=== PATIENT | female | born 1965 | race Caucasian/White ===

== ENCOUNTER → 2017-06-03 | Outpatient (CLI) | payer BC ==
[~2017-06-03] MED LIST: REGADENOSON 0.4 MG/5 ML SYR IV ONE
--- NOTE | 2017-06-04 14:58 | Consultation ---
DATE OF CONSULTATION: June 04, 2017 CARDIOLOGY CONSULTATION REQUESTING PHYSICIAN: Dr. Anand Carter. REASON FOR CONSULTATION: Chest pain. HISTORY OF PRESENT ILLNESS: This is a 52-year-old woman with a history of ADD, who presents with complaints of chest pain. She reports she has been having chest tightness associated with shortness of breath for the last couple of weeks. This pain is described as 4 out of 10 in severity, which usually occurs at the end of a long day while she is sitting down. The pain lasts minutes at a time and is not associated with nausea, diaphoresis or radiation. She has not noticed any change in the severity of the chest pain with activity. REVIEW OF SYSTEMS: Negative except as per HPI. PAST MEDICAL HISTORY: ADD. PAST SURGICAL HISTORY 1. section x2. 2. Tonsillectomy. 3. Breast augmentation. 4. Cholecystectomy with gastric stapling. ALLERGIES: PLEASE SEE EMR. MEDICATIONS: Please see medication list. SOCIAL HISTORY: Denies tobacco, alcohol or illicit drugs. FAMILY HISTORY: Noncontributory. PHYSICAL EXAMINATION VITAL SIGNS: Reviewed. GENERAL: Morbidly obese woman in no acute distress. Well developed, well nourished. HEENT: Normocephalic, atraumatic. Pupils equal, no scleral icterus. NECK: Supple. No thyromegaly or cervical lymphadenopathy, no carotid bruits. LUNGS: Clear to auscultation bilaterally. No wheezes or crackles. CARDIOVASCULAR: Normal rate, regular rhythm. No murmur. Normal S1 and S2. ABDOMEN: Soft, nontender. EXTREMITIES: No edema. NEURO: Nonfocal exam. IMPRESSION: Chest pain. RECOMMENDATIONS: We will proceed with pharmacologic nuclear stress test for further evaluation of the patient's chest pain. Job#: [id number] EV
--- NOTE | 2017-06-04 20:19 | Cardiology Report ---
DATE OF STUDY: June 04, 2017 PROCEDURE TITLE Rest stress single isotope SPECT imaging with pharmacologic stress and gated SPECT imaging. INDICATION: Chest pain. PROCEDURE: Pharmacologic stress testing was performed with regadenoson per protocol. Heart rate was 69 beats per minute at baseline and bambi to 98 beats per minute during the regadenoson infusion. The rest blood pressure was 132/74 and increased to 135/67 mmHg, which is a normal response. The patient did not develop any significant symptoms. The resting electrocardiogram demonstrated normal sinus rhythm. There were no ST segment changes consistent with myocardial ischemia. Myocardial perfusion imaging was performed at rest following the injection of 32 millicuries of tetrofosmin the previous day. At peak pharmacologic effect, the patient was injected with 31.2 mCi of tetrofosmin. Gated post stress tomographic imaging was performed. FINDINGS: Overall quality of the study is fair. Attenuation artifact is present. Left ventricular cavity is noted to be normal size on the rest and stress studies. The rest images reveal a medium-sized mild anterior perfusion defect that improves with stress. Gated SPECT imaging reveals normal myocardial thickening and wall motion. The left ventricular ejection fraction was calculated to be greater than 70%. IMPRESSION: Myocardial perfusion imaging is normal. There is a medium-sized mild anterior attenuation artifact. Overall left ventricular systolic function was normal without regional wall motion abnormalities. Job#: [id number] GH cc:VIANEY TURNER MD
== END ==
LOC: NM 15:29
PROVIDERS: ATTEND Internal Medicine
DX: R07.9 Chest pain, unspecified (principal)
CPT/HCPCS: 78452; A9502

== ENCOUNTER 2020-08-12 12:07 | Emergency (ER) | payer OTHER, BC ==
[~2020-08-12] VITALS: Ht 175.3 cm; Wt 147.4 kg
[2020-08-12] MEDS ORDERED: HYDROCODONE/APAP 5MG-325MG TAB PO ONE (12:45)
[2020-08-12 15:40] VITALS: BP 136/79
== END 2020-08-12 14:30 | disposition home or self-care (01) ==
LOC: ER 12:48
DX: S00.03XA Contusion of scalp, initial encounter (principal); S20.212A Contusion of left front wall of thorax, initial encounter; M54.2 Cervicalgia; W01.0XXA Fall on same level from slipping, tripping and stumbling without subsequent striking against object, initial encounter; Y93.01 Activity, walking, marching and hiking
CPT/HCPCS: 70450; 71101; 72125; 99283

== ENCOUNTER → 2020-08-28 | Outpatient (CLI) | payer BC | LOC: CT 16:16 | PROVIDERS: ATTEND Internal Medicine | DX: R51.9 Headache, unspecified (principal) | CPT/HCPCS: 70450 ==

== ENCOUNTER 2024-08-03 22:18 | Emergency (ER) | payer BC ==
[~2024-08-03] VITALS: Ht 175.3 cm; Wt 147.4 kg
[2024-08-03 22:59] VITALS: TEMP 98
[2024-08-03 23:27] LABS: BASOPHILS # (AUTO) 0.1 (0.0-0.1); BASOPHILS % 0.6 % (0.0-1.0); EOSINOPHILS # (AUTO) 0.1 (0.0-0.4); EOSINOPHILS % 0.9 % (0.0-6.0); HEMATOCRIT 35.7 % (34.2-44.1); HEMOGLOBIN 11.7 g/dL (12.0-16.0); LYMPHOCYTES # (AUTO) 3.4 (1.0-3.2); MEAN CORPUSCULAR HGB CONC 32.8 g/dL (31-35); MEAN CORPUSCULAR VOLUME 97.5 fL (81-99); MONOCYTES # (AUTO) 0.7 (0.2-0.8); MONOCYTES % 8.1 % (4.4-11.3); NEUTROPHILS # (AUTO) 3.9 (2.1-6.9); PLATELET COUNT 219 x10e3/uL (140-360); RED BLOOD COUNT 3.66 x10e6/uL (3.6-5.1); RED CELL DISTRIBUTION WIDTH 12.8 % (11.7-14.4); WHITE BLOOD COUNT 8.04 x10e3/uL (4.8-10.8)
[2024-08-03 23:47] LABS: ALBUMIN 3.5 g/dL (3.5-5.0); ALBUMIN/GLOBULIN RATIO 1.3 (0.8-2.0); ANION GAP 13.1 mmol/L (8-16); BILIRUBIN,TOTAL 0.3 mg/dL (0.2-1.2); CALCIUM 8.4 mg/dL (8.4-10.2); CREATININE, SERUM 0.73 mg/dL (0.57-1.11); POTASSIUM 4.1 mmol/L (3.5-5.1); TOTAL PROTEIN 6.3 g/dL (6.5-8.1)
[2024-08-04] VITALS: PULSE 71; RESP 18
[2024-08-04 01:34] VITALS: BP 117/68; PULSE 84; RESP 17; TEMP 98.3; O2SAT 98
== END 2024-08-04 01:36 | disposition home or self-care (01) ==
LOC: ER 23:23
DX: R60.9 Edema, unspecified (principal); M79.89 Other specified soft tissue disorders
CPT/HCPCS: 36415; 71045; 80053; 84484; 85025; 93005; 93971; 99284